=== PATIENT | male | born 1975 | race African-American/Black ===

== ENCOUNTER → 2019-09-07 | Outpatient (CLI) | payer OTHER ==
[~2019-09-07] MED LIST: TYLENOL WITH C1 EACH PO
== END ==
LOC: DX 10:38 → EDSTATUS 09-13 07:30
PROVIDERS: ATTEND Specialist
DX: Z01.818 Encounter for other preprocedural examination (principal); S82.892A Other fracture of left lower leg, initial encounter for closed fracture
CPT/HCPCS: 93005